=== PATIENT | male | born 1990 | race Caucasian/White ===

== ENCOUNTER 2019-12-04 12:26 | Emergency (ER) | payer SELFPAY, OTHER ==
[~2019-12-04] VITALS: Ht 188 cm; Wt 86.2 kg
--- NOTE | 2019-12-04 12:32 | Emergency Room Report ---
History of Present Illness General Chief Complaint: Medical Clearance Source: Patient Present Illness HPI 29-year-old male presents for medical clearance, patient had a bleeding nose earlier today, self resolved no known aggravating relieving factors, patient without any complaints patient reports he wants to plead the fifth patient is currently in custody denies any trauma patient presents for evaluation and treatment Allergies: Coded Allergies: No Known Allergies (Unverified , 12/04/19) Patient History Past Medical History: see triage record Reviewed Nursing Documentation: PMH: Agreed; PSxH: Agreed Review of Systems All Other Systems: negative except mentioned in HPI Physical Exam Vital Signs Date Time Temp Pulse Resp B/P (MAP) Pulse Ox O2 Delivery O2 Flow Rate FiO2 12/04/19 12:29 98.1 113 16 155/74 (101) 100 Room Air General Appearance: well appearing, no apparent distress Head: normocephalic, atraumatic Eyes: bilateral eye PERRL, bilateral eye EOMI ENT: hearing grossly normal, normal voice, other - Dried blood naris, no active bleeding Neck: full range of motion, supple Respiratory: lungs clear, no respiratory distress, speaking full sentences Cardiovascular #1: no JVD, no murmur, no rub, tachycardia Musculoskeletal: gait/station normal Neurologic: alert, normal gait Psychiatric: mood/affect normal Skin: no rash Medical Decision Making Diagnostic Impression: Primary Impression: Medical clearance for incarceration ER Course 29-year-old male presents for medical clearance, currently without any complaints states he feels fine states his nosebleed earlier today self resolved Disposition back into custody Disposition: LAW ENFORCEMENT IN CUST Condition: Stable Referrals: [facility] Departure Forms: [facility] Clearance Patient Instructions: Medical Screening Exam Additional Instructions: The patient was provided with discharge instructions, notified to follow-up with a primary care doctor and or specialist in the next 24-48 hours, and to return to the ED if they have worsening of their symptoms. Please note that this report is being documented using [employer] technology. This can lead to erroneous entry secondary to incorrect interpretation by the dictating instrument. Eddi Emmanuel MD Dec 04, 2019 12:32
[2019-12-04 12:34] VITALS: BP 153/71
[2019-12-04 12:43] VITALS: BP 146/73
== END 2019-12-04 12:43 ==
LOC: EMR 12:31
DX: Z02.89 Encounter for other administrative examinations (principal)
CPT/HCPCS: 99281

== ENCOUNTER 2020-02-21 08:36 | Emergency (ER) | payer SELFPAY ==
[~2020-02-21] VITALS: Ht 188 cm; Wt 81.6 kg
--- NOTE | 2020-02-21 08:40 | NUR ---
ED Nurse Note: Pt arrived to ED escorted by [employer] for medical clearance. Pt came in with bilateral foot swelling and bilated infected ankle noted with skin tear and pus; non-draining. Pt is AOx3, cooperative to care, pt's VSS, on RA, afebrile on triage, Placed on RME.
--- NOTE | 2020-02-21 08:40 | Emergency Room Report ---
History of Present Illness General Chief Complaint: Foot source Source: Patient Present Illness HPI Disclaimer: Please note that this report is being documented using [employer] technology. This can lead to erroneous entry secondary to incorrect interpretation by the dictating instrument. HPI: 30-year-old male presents in police custody for medical clearance prior to incarceration. He is complaining of bilateral foot wounds. Patient states over the past few days his heels have been rubbed raw by ill fitting shoes. He does a lot of walking. Unable to keep his feet clean. Denies injury. Denies bleeding. Denies purulent drainage. Has not applied any topical medications. Does not take any other medications. PMH: Reviewed PSH: Reviewed Allergies: Reviewed Social Hx: Reviewed Allergies: Coded Allergies: No Known Allergies (Unverified , 12/04/19) COVID-19 Screening Contact w/high risk pt: No Experienced COVID-19 symptoms?: No Review of Systems All Other Systems: negative except mentioned in HPI Physical Exam General: Awake and alert, no acute distress HEENT: NC/AT. EOMI. Resp: Normal work of breathing Skin: Blistering over the heels bilaterally. No purulent drainage. No obvious ulceration to the deep tissue. No bleeding. Mild surrounding erythema. MSK: Normal tone and bulk. Moving all extremities. No obvious deformity. Neuro: Awake and alert. Mentating appropriately Medical Decision Making Diagnostic Impression: Primary Impression: Medical clearance for incarceration Additional Impression: Heel blister ER Course Is a 30-year-old male presenting for evaluation of foot wounds noticed over the past few days prior to incarceration. Patient appears to have moderate sized blisters from ill fitting shoes. Wounds were cleaned, bacitracin applied, sterile bandage applied. Discussed wound care. Discharged to [facility] custody Disposition: LAW ENFORCEMENT IN CUST Condition: Stable Scripts Bacitracin (Bacitracin) 28.4 Gm Oint...g. 1 APPLIC TOPIC THREE TIMES A DAY for 5 Days, #28.4 GM Prov: Akin Mcnamara MD 02/21/20 Akin Mcnamara MD Feb 21, 2020 08:40
[2020-02-21] MEDS ORDERED: BACITRACIN15 GM TOPIC (08:48)
[2020-02-21 08:50] VITALS: BP 131/69
[2020-02-21] MEDS ORDERED: Bacitracin Oint UD TOPIC ONE (09:00)
[2020-02-21 09:08] VITALS: BP 134/71
--- NOTE | 2020-02-21 09:08 | NUR ---
ER DISCHARGE NOTE: Patient is cleared to be discharged per ERMD, pt is aox4, on room air, with stable vital signs. pt was given dc and prescription instructions, pt was able to verbalize understanding, pt id band removed. pt is able to ambulate with steady gait. pt took all belongings.
[2020-02-21] MEDS ORDERED: CEPHALEXIN500 MG ORAL (18:04)
== END 2020-02-21 09:08 ==
LOC: EMR 08:45
DX: Z02.89 Encounter for other administrative examinations (principal); S90.822A Blister (nonthermal), left foot, initial encounter; S90.821A Blister (nonthermal), right foot, initial encounter; Y93.01 Activity, walking, marching and hiking; Y92.9 Unspecified place or not applicable
CPT/HCPCS: 99282

== ENCOUNTER 2020-02-21 15:30 | Emergency (ER) | payer SELFPAY ==
[~2020-02-21] VITALS: Ht 188 cm; Wt 86.2 kg
[~2020-02-21 15:30] MED LIST: BACITRACIN15 GM TOPIC
[2020-02-21 15:46] VITALS: BP 118/60
--- NOTE | 2020-02-21 15:52 | NUR ---
ED Nurse Note: Pt ambulated to ED from ER for wound follow up. Pt was seen and treated earlier in the ER, abx ointment was given with bandages but pt came back with bare injuries on. Pt is AOx3, calm and cooperative to care noted wih needs of occassional redirection, VSS, on RA, afebrile on triage. Placed on bed.
[2020-02-21] MEDS ORDERED: Cephalexin 500mg cap ORAL ONE (17:00)
[2020-02-21] MEDS ORDERED: Tetanus/Diptheria/Pertussis IM ONE (17:00)
--- NOTE | 2020-02-21 18:03 | Emergency Room Report ---
History of Present Illness General Chief Complaint: Skin Rash/Abscess Source: Patient Present Illness HPI 30-year-old male presents to the emergency department requesting wound dressing to be replaced. Patient reports he was here in the emergency department this morning and had bandages placed on his feet bilaterally over several blisters. Patient reports he has been walking a lot and they fell off. Patient states he was not sure when his last tetanus vaccine was. He denies fevers or chills. He denies new trauma. Patient denies pain at this time. He reports some swelling. No other aggravating or relieving factors at this time. Allergies: Coded Allergies: No Known Allergies (Unverified , 12/04/19) COVID-19 Screening Contact w/high risk pt: No Experienced COVID-19 symptoms?: No COVID-19 Testing performed ADVISORY INTERNSHIP: No Patient History Past Medical History: see triage record Past Surgical History: none Pertinent Family History: none Reviewed Nursing Documentation: PMH: Agreed; PSxH: Agreed Nursing Documentation-PMH Past Medical History: No History, Except For History Of Psychiatric Problem: Yes - substance abuse Review of Systems All Other Systems: negative except mentioned in HPI Physical Exam Vital Signs Date Time Temp Pulse Resp B/P (MAP) Pulse Ox O2 Delivery O2 Flow Rate FiO2 02/21/20 15:34 98.1 78 20 118/60 (79) 97 Room Air Sp02 EP Interpretation: reviewed, normal General Appearance: no apparent distress, alert, GCS 15, non-toxic Head: normocephalic, atraumatic Eyes: bilateral eye normal inspection, bilateral eye PERRL ENT: hearing grossly normal, normal voice Neck: full range of motion Respiratory: lungs clear, normal breath sounds, speaking full sentences Cardiovascular #1: regular rate, rhythm, normal capillary refill Cardiovascular #2: 2+ dorsalis pedis (R), 2+ dorsalis pedis (L) Musculoskeletal: normal range of motion, no calf tenderness, gait/station normal, non-tender Neurologic: alert, motor strength/tone normal, oriented x3, sensory intact, responsive, speech normal Psychiatric: judgement/insight normal Skin: other - several blisters to the plantar aspect of the feet bilaterally there is some associated erythema warmth and swelling. Normal cap refill and 2+ pedal pulses bilaterally. No bleeding. One of the blisters has opened up. Medical Decision Making PA Attestation Dr. Moreno is my supervising Physician whom patient management has been discussed with. Diagnostic Impression: Primary Impression: Heel blister Qualified Codes: S90.829A - Blister (nonthermal), unspecified foot, initial encounter Additional Impression: Cellulitis Qualified Codes: L03.119 - Cellulitis of unspecified part of limb ER Course 30-year-old male presents to the emergency department requesting wound dressing to be replaced. Patient reports he was here in the emergency department this morning and had bandages placed on his feet bilaterally over several blisters. Patient reports he has been walking a lot and they fell off. Patient states he was not sure when his last tetanus vaccine was. He denies fevers or chills. He denies new trauma. Patient denies pain at this time. He reports some swelling. No other aggravating or relieving factors at this time. Ddx considered but are not limited to cellulitis, Necrotizing fasciitis, allergic reaction, burn, dermatitis, fracture, d/L, gout, paronichia, eponichia, ingrown toe nail, Vital signs: are WNL, pt. is afebrile H&PE are most consistent with several blisters to the plantar aspect of the feet bilaterally there is some associated erythema warmth and swelling. Normal cap refill and 2+ pedal pulses bilaterally. No bleeding. One of the blisters has opened up. ORDERS: none required at this time, the diagnosis is clinical ED INTERVENTIONS: -Tdap IM -Keflex PO Tylenol PO DISCHARGE: At this time pt. is stable for d/c to home. Will provide printed patient care instructions, and any necessary prescriptions. Care plan and follow up instructions have been discussed with the patient prior to discharge. Last Vital Signs Date Time Temp Pulse Resp B/P (MAP) Pulse Ox O2 Delivery O2 Flow Rate FiO2 02/21/20 15:46 98.1 20 118/60 97 Room Air 02/21/20 15:34 78 Disposition: HOME, SELF-CARE Condition: Stable Scripts Cephalexin* (KEFLEX*) 500 Mg Capsule 500 MG ORAL EVERY 12 HOURS for 7 Days, #14 CAP 0 Refills Prov: Hyun Colbert 02/21/20 Referrals: NOT CHOSEN IPA/,REFERRING (PCP) H [facility] Patient Instructions: Blisters Additional Instructions: Take medications as directed. Follow up with a Primary Care Provider in 3-5 days, even if your symptoms have resolved. --Please review list of primary care clinics, if you do not already have a primary care provider Return sooner to ED if new symptoms occur, or current symptoms become worse. - Please note that this Emergency Department Report was dictated using [employer] operations [employer] technology software, occasionally this can lead to erroneous entry secondary to interpretation by the dictation equipment. Hyun Colbert Feb 21, 2020 18:03
[2020-02-21] MEDS ORDERED: CEPHALEXIN500 MG ORAL (18:04)
[2020-02-21 18:13] VITALS: BP 120/61
--- NOTE | 2020-02-21 18:13 | NUR ---
ER DISCHARGE NOTE: Patient is cleared to be discharged per ERPA, pt is aox4, on room air, with stable vital signs. pt was given dc and prescription instructions, pt was able to verbalize understanding, pt id band removed. pt is able to ambulate with steady gait. pt took all belongings.
== END 2020-02-21 18:13 | disposition home or self-care (01) ==
LOC: EMR 16:00
DX: S90.822A Blister (nonthermal), left foot, initial encounter (principal); S90.821A Blister (nonthermal), right foot, initial encounter; L03.119 Cellulitis of unspecified part of limb; X58.XXXA Exposure to other specified factors, initial encounter; Y92.9 Unspecified place or not applicable; Z23 Encounter for immunization
CPT/HCPCS: 90471; 90715; 99282